=== PATIENT | female | born 1955 ===

== ENCOUNTER 2021-01-13 19:00 | Outpatient (CLI) | payer MEDICARE, BC | END 2021-01-13 19:01 | disposition home or self-care (01) | LOC: SLEEPLAB 19:00 | PROVIDERS: ATTEND Internal Medicine | DX: G47.33 Obstructive sleep apnea (adult) (pediatric) (principal); R06.83 Snoring; K21.9 Gastro-esophageal reflux disease without esophagitis; G47.00 Insomnia, unspecified; G47.10 Hypersomnia, unspecified; F41.8 Other specified anxiety disorders | CPT/HCPCS: 95810 ==

== ENCOUNTER 2021-02-24 19:00 | Outpatient (CLI) | payer MEDICARE, BC | END 2021-02-24 19:01 | disposition home or self-care (01) | LOC: SLEEPLAB 19:00 | PROVIDERS: ATTEND Internal Medicine | DX: G47.33 Obstructive sleep apnea (adult) (pediatric) (principal); R06.83 Snoring; G47.10 Hypersomnia, unspecified; E66.9 Obesity, unspecified; Z68.33 Body mass index [BMI] 33.0-33.9, adult | CPT/HCPCS: 95811 ==